=== PATIENT | female | born 1995 | race Caucasian/White ===

== ENCOUNTER 2021-06-20 20:50 | Emergency (ER) | payer OTHER ==
[~2021-06-20] VITALS: Ht 162.6 cm; Wt 74.8 kg
[2021-06-20 20:56] VITALS: BP 110/64
--- NOTE | 2021-06-20 20:59 | NUR ---
TO LOBBY A/W BED AMBULATORY
--- NOTE | 2021-06-20 21:16 | NUR ---
PT AMBULATED TO BED 08
--- NOTE | 2021-06-20 21:20 | NUR ---
SEE COMPLETE ASSESSMENT.
[2021-06-20] MEDS ORDERED: HYDR10SY PO (22:41)
--- NOTE | 2021-06-20 22:56 | NUR ---
Patient discharged with v/s stable. Written and verbal after care instructions given and explained. Patient alert, oriented and verbalized understanding of instructions. Ambulatory with steady gait. All questions addressed prior to discharge. ID band removed. Patient advised to follow up with PMD. Rx of HYDROXYZINE HCL given. Patient educated on indication of medication including possible reaction and side effects. Opportunity to ask questions provided and answered.
== END 2021-06-20 22:56 | disposition home or self-care (01) ==
LOC: MED 20:50
DX: R00.2 Palpitations (principal); R07.9 Chest pain, unspecified; Z79.899 Other long term (current) drug therapy
CPT/HCPCS: 93005; 99283